=== PATIENT | female | born 1985 | race African-American/Black ===

== ENCOUNTER 2017-09-01 15:57 | Emergency (ER) | payer MEDICAID, OTHER ==
[~2017-09-01] VITALS: Ht 177.8 cm; Wt 78.0 kg
[~2017-09-01 15:57] MED LIST: ALBU17AE26
[2017-09-01 16:24] VITALS: BP 122/85
== END 2017-09-01 21:22 | disposition left against medical advice (07) ==
LOC: ER 15:57
DX: R11.10 Vomiting, unspecified (principal); Z53.21 Procedure and treatment not carried out due to patient leaving prior to being seen by health care provider

== ENCOUNTER 2018-12-16 00:01 | Emergency (ER) | payer SELFPAY ==
[~2018-12-16] VITALS: Ht 177.8 cm; Wt 73.0 kg
[2018-12-16 00:10] VITALS: BP 142/102
== END 2018-12-16 03:08 | disposition left against medical advice (07) ==
LOC: ER 00:01
DX: Z53.21 Procedure and treatment not carried out due to patient leaving prior to being seen by health care provider (principal)